=== PATIENT | female | born 1965 | race Caucasian/White ===

== ENCOUNTER 2017-08-27 06:26 | Day surgery (SDC) | payer BC ==
[~2017-08-27] VITALS: Ht 165.1 cm; Wt 58.3 kg
[~2017-08-27 06:26] MED LIST: B-COTAB41 PO; DEXI60CA3 PO; DILA1LIQ PO; DILA2TAB4 PO; DIPH25 PO; GLUC250C5 PO; IMIT100T PO; LIDO5T TOP; MOBI7.5T PO; ONDA4 PO; PRAV40TA PO; PREG25 PO; PREM0.622 PO; TOPI50TA4 PO; WELL150T PO
[2017-08-27] MEDS ORDERED: IOHEXOL 350 MG/ML 100 ML BTL (for Cath Lab) OTHER ONE (06:27)
[2017-08-27] MEDS ORDERED: ASPIRIN 325 MG TAB PO SCH (07:00)
[2017-08-27] MEDS ORDERED: NS 1000P @30 MLS/HR (KVO) IV SCH (07:00)
[2017-08-27 07:04] LABS: AUTOMATED NEUTROPHIL # 4.4 TH/MM3 (1.8-7.7); BASOPHIL # 0.1 TH/MM3 (0-0.2); BASOPHIL % 0.8 % (0.0-2.0); EOSINOPHIL # 0.1 TH/MM3 (0-0.4); EOSINOPHIL % 1.6 % (0.0-4.0); HEMOGLOBIN 14.6 GM/DL (11.6-15.3); LYMPH % 37.3 % (9.0-44.0); LYMPHOCYTE # 3.1 TH/MM3 (1.0-4.8); MEAN CORPUSCULAR HEMOGLOBIN 30.8 PG (27.0-34.0); MEAN CORPUSCULAR HGB CONC 33.1 % (32.0-36.0); MEAN PLATELET VOLUME 9.7 FL (7.0-11.0); MONO % 6.4 % (0.0-8.0); MONOCYTE # 0.5 TH/MM3 (0-0.9); NEUT % 53.9 % (16.0-70.0); PLATELET COUNT 178 TH/MM3 (150-450); RED BLOOD COUNT 4.73 MIL/MM3 (4.00-5.30); RED CELL DISTRIBUTION WIDTH 12.6 % (11.6-17.2); WHITE BLOOD COUNT 8.3 TH/MM3 (4.0-11.0)
[2017-08-27 07:05] VITALS: BP 136/65; PULSE 53; RESP 18; TEMP 97.8; O2SAT 98
[2017-08-27 07:17] LABS: INTERNATIONAL NORMALIZED RATIO 0.9 RATIO; PROTHROMBIN TIME - PATIENT 9.4 SEC (9.8-11.6)
[2017-08-27] MEDS ORDERED: MONT10TA4 PO (07:24)
[2017-08-27] MEDS ORDERED: AMLO2.5T PO (07:24)
[2017-08-27] MEDS ORDERED: PRAV40TA2 PO (07:24)
[2017-08-27] MEDS ORDERED: ESTR.625 PO (07:24)
[2017-08-27] MEDS ORDERED: METO25TA3 PO (07:24)
[2017-08-27] MEDS ORDERED: ASPI81TA23 PO (07:24)
[2017-08-27] MEDS ORDERED: ZOFR4TAB PO (07:24)
[2017-08-27] MEDS ORDERED: CALC1TAB12 PO (07:24)
[2017-08-27] MEDS ORDERED: SUMA100T2 PO (07:24)
[2017-08-27] MEDS ORDERED: NITR0.4S SL (07:24)
[2017-08-27] MEDS ORDERED: VITA500T4 PO (07:24)
[2017-08-27] MEDS ORDERED: BUPR150CR PO (07:24)
[2017-08-27] MEDS ORDERED: OMEP40CA2 (07:24)
[2017-08-27 07:29] LABS: CALCIUM 8.6 MG/DL (8.5-10.1); CREATININE 0.85 MG/DL (0.50-1.00)
[2017-08-27] MEDS ORDERED: HEPARIN-NS/PF INJ 1,000 ML ONE (08:31)
[2017-08-27] MEDS ORDERED: MIDAZOLAM HCL 2 MG/2 ML VIAL ONE ×2 (08:31→08:59)
[2017-08-27] MEDS ORDERED: NITROGLYCERIN 400 MCG/SPRAY 4.9 GM BOTTLE SL ONE (09:20)
[2017-08-27] MEDS ORDERED: SODIUM CHLOR 0.9% 1000 ML INJ 1,000 ML IV SCH (09:48)
--- NOTE | 2017-08-27 09:48 | CATHPROC ---
[facility] HIS Report Study Information Study Number Admission Scheduled Start Study Start [id number] Aug 27 2017 6:26AM 08/27/2017 Aug 27 2017 8:27AM Jeannette Service Cardiac Catheterization Admit Source Facility Department Other [facility] - Card Game Operator Physician and Clinical Staff Initial Uvaldo Prabhakar Fishing Instructor Carlos Loera,NATA Recorder Luz Monsalve,BRUSH PAINTER TECH2 Scrub Michelle Kaur,RT(R) Procedures Performed Procedure Location (Site) Vessel Name Angiogram LV LV Ventricle Coronary Angiograms LCA Left Coronary Coronary Angiograms RCA Right Coronary L Heart Cath Equipment Time Stock Handler Description Size Mfg Part Number Used/Scraped TRANSDUCER, TRUWAVE [id number] 08:29 GOMEZ MANNING * Used W/STOCKCOCK *[id number] 538-476 *[id number] [id number] *[id number] [id number] *[id number] [id number] *[id number] PIGTAIL ANG. 145 INFINITI 534-652S CATHETER *[id number] 08:29 [employer] BLANKET,WARM AIR CCL * Used *[id number] 08:29 [employer] PACK, CCL CUSTOM * Used *[id number] 08:29 [employer] PACER PEN, SKIN DUAL W/ RULER * Used *[id number] 08:29 [employer] MEDICAL SHEATH, FR6.5 PRELUDE 11CM FR 6.5 038ACT Used *[id number] 08:29 [employer] WIRE, 3MMJ .035 180CM 180CM Used *[id number] 08:29 [employer] MANIFOLD, 4 PORT * Used *[id number] 08:29 [employer] OMNIPAQUE, 350 MG, 150ML 150ML [id number] Used 09:08 [employer] OMNIPAQUE, 350 MG, 50ML 50ML [id number] Used History: Current Medications Medication Dosage/Unit Route Frequency Last Date/Time Taken Prilosec Statins (any) ASA Imdur LOPRESSOR History: Allergies Allergy Reaction morphine Swelling codeine hydrocodone oxycodone acetaminophen tramadol Itching History: Risk Factors Family History of Hypertension Dyslipidemia Previous PA Previous Heart Failure Premature CAD No Yes Yes No No Prior Valve Prior PCI Prior CABG Surgery No No No Cerebrovascular Peripheral Artery Chronic Lung On Dialysis Diabetes Disease Disease Disease No No No No No History: Symptoms/Diagnosis Selection Items Chest pain Palpitations History: Stress Tests Stress or Imaging Studies Performed Yes Standard Exercise Stress Test No Stress Echo No Stress Test SPECT Stress Test SPECT Result Stress Test SPECT Ischemia Risk/Extent Yes Positive Intermediate Stress Test CMR No Cardiac CTA Coronary Calcium Score No No History: Other Current Smoker Method Quit Packs a Day Years Used Pack Years No Cigarettes 3 Years Ago 1 20 20 Labs Hgb (g/dl) Hct (%) WBC (l/cumm) Platelets (thousands) 11.60-17.00 35.00-51.00 4.00-11.00 150.00-450.00 14.6 44 8.3 178 Glucose (mg/dl) BUN (mg/dl) Creatinine (mg/dl) BUN:Creatinine (1:x) 74.00-106.00 7.00-18.00 0.50-1.30 10.00-20.00 81 14 0.8 17.5 Na (meq/l) K (meq/l) 136.00-145.00 3.50-5.10 140 3.8 INR (PTT:PT) 0.90-1.10 0.9 CPK-MB (ng/ML) 0.50-3.60 Not Drawn Medication Medication Total Dose (Bolus/Oral) Medication Total Dosage/Unit 1% XYLOCAINE 20 mL NITROGLYCERIN S/L 0.4 mg VERSED 3 mg Medications (Bolus/Oral) Medication Time Given Dosage/Unit Administered By Reason VERSED 08/27/2017 8:58:29 AM 1 mg Ferlitto, Carlos 1 mg VERSED given in lab by Carlos Loera RN in Left Forearm via Peripheral IV. Ordered by Uvaldo Valadez. VERSED 08/27/2017 9:01:28 AM 1 mg Ferlitto, Carlos 1 mg VERSED given in lab by Carlos Loera RN in Left Forearm via Peripheral IV. Ordered by Uvaldo Valadez. VERSED 08/27/2017 9:02:49 AM 1 mg Ferlitto, Carlos 1 mg VERSED given in lab by Carlos Loera RN in Left Forearm via Peripheral IV. Ordered by Uvaldo Valadez. 1% XYLOCAINE 08/27/2017 9:04:32 AM 20 mL Uvaldo Valadez 20 mL 1% XYLOCAINE given in lab by Uvaldo Valadez in Right Groin via Subcutaneous. Ordered by Uvaldo Valadez. NITROGLYCERIN S/L 08/27/2017 9:20:45 AM 0.4 mg Carlos Loera 0.4 mg NITROGLYCERIN S/L given in lab by Carlos Loera, RN via Sublingual. Ordered by Uvaldo Valadez. Medication (Drip) Medication Time Given Dosage/Unit Concentration/Unit Diluent (ml) Solution IV Solutions 08/27/2017 8:27:33 AM 0 mL (IV) 500 NaCl .9 Patient arrived on IV Solutions in Left Antecubital via Peripheral IV. Pump/Drip Flow = 20 ml/hr usin g NaCl .9. Initial Case Assessment Cardiovascular HR Rhythm NIBP Chest Pain 62 reg 130/61 0 Edema Present Skin color Skin None Normal Warm Circulatory - Right Pulses Dorsalis Pedis Femoral d 2 Scale (0,1,2,3,4,d) Circulatory - Left Pulses Dorsalis Pedis Femoral d 2 Scale (0,1,2,3,4,d) Neurological State Oriented to time-place- Alert Moves all extremities person Respiration - General Respiration Rate SpO2 (%) (B/min) 12 100 Final Case Assessment Cardiovascular HR Rhythm NIBP Chest Pain 67 sr 107/47 0 Circulatory - Right Pulses Dorsalis Pedis Femoral d 2 Scale (0,1,2,3,4,d) Circulatory - Left Pulses Dorsalis Pedis Femoral d 2 Scale (0,1,2,3,4,d) Neurological State Oriented to time-place- Alert Moves all extremities person Respiration - General Respiration Rate SpO2 (%) (B/min) 15 97 Chronological Log Time Study Chronological Log 8:25:11 Patient arrived via Bed. 8:25:19 Patient Name, D.O.B, / Armband Verified By R.N. 8:27:19 Consent signed by the physician and the patient and verified by the Card Game Operator staff. 8:27:20 Pre-op and post- op instructions given; patient acknowledges understanding of instructions. 8:27:20 Verbal Stimulation=2 Physical Stimulation=2 Airway=2 Respiration=2 TOTAL=8. (0=absent, 1=katz ited, 2=present) 8:27:22 Patient has been NPO for Less than 6Hrs. 8:27:23 Skin Breakdown-none per patient 8:27:27 A # 20 IV was noted in the Forearm (left). Grade = 0 8:27:33 Patient arrived on IV Solutions in Left Antecubital via Peripheral IV. Pump/Drip Flow = 20 m l/hr using NaCl .9. Vitals capture started with the following parameters, Patient=Adult, Interval=5 min, Initial Pre icouz=289 mmHg, 8:28:18 Deflation Rate=5 mmHg, Cuff placed on right Arm 8:28:58 KMWH=722/61 mmhg, KoD5=254.0 %, Pain=0, Katty=10, Lara=2 8:29:56 History and physical on the chart or being dictated. Assessment: Initial Case, HR=62 BPM, Rhythm=reg, YTQH=876/61 mmhg, Chest Pain=0, Edema=None, Col or=Normal, Skin = Warm Right Pulses: Jose A Ped=d, Femoral=2 8:29:57 Left Pulses: Jose A Ped=d, Femoral=2 Neurological: State=Alert, Ox3, SALAZAR Respiration: Resp=12 B/min, OpQ2=583 % 8:30:41 Reference ECG taken 8:30:53 HR=64 bpm, OSYD=738/58 mmhg, EmO4=178.0 %, Resp=13 B/min, Pain=0, Katty=10, Lara=2 8:32:54 HR=53 bpm, WLQV=397/58 mmhg, LfM3=898.0 %, Resp=10 B/min 8:34:53 HR=56 bpm, XFLG=575/57 mmhg, YtP5=081.0 %, Resp=11 B/min 8:36:41 Bilateral groins prepped with 2% chlorhexidine, and draped after a 3 minute waiting time. 8:36:53 HR=59 bpm, ZECK=377/61 mmhg, WaZ6=153.0 %, Resp=11 B/min 8:38:54 XF=738 bpm, NGFC=140/62 mmhg, MtC8=952.0 %, Resp=9 B/min 8:40:55 HR=61 bpm, UACI=377/52 mmhg, HaB0=155.0 %, Resp=20 B/min 8:42:09 Pressure channel 1 zeroed. 8:42:54 HR=58 bpm, QZGR=697/63 mmhg, GkN5=871.0 %, Resp=16 B/min 8:43:56 paged 8:44:53 HR=54 bpm, EVFO=182/58 mmhg, VrZ6=673.0 %, Resp=12 B/min 8:46:54 HR=55 bpm, RNVR=280/51 mmhg, VvH7=389.0 %, Resp=18 B/min 8:48:54 HR=53 bpm, ETFA=470/51 mmhg, PrO9=700.0 %, Resp=9 B/min 8:50:14 MD arrived. 8:50:55 HR=56 bpm, DSQK=435/53 mmhg, SkO5=043.0 %, Resp=11 B/min 8:52:56 HR=60 bpm, BWYM=856/47 mmhg, QwW3=204.0 %, Resp=7 B/min 8:54:57 HR=65 bpm, KMPE=806/53 mmhg, TmT6=871.0 %, Resp=21 B/min 8:56:58 HR=58 bpm, HKFV=085/49 mmhg, WrO4=980.0 %, Resp=14 B/min 8:58:29 1 mg VERSED given in lab by Carlos Loera RN in Left Forearm via Peripheral IV. Ordered by Uvaldo Valadez. 8:58:52 HR=62 bpm, CJMV=857/58 mmhg, SkR5=800.0 %, Resp=10 B/min Time Out. Correct patient, correct procedure, correct physician, labs, allergies, and equipment verified with rn labor delivery 9:00:04 team present. Fire risk assesment completed (see hard stop sheet for coding). Time Out Concu rred by and individual staff in procedure. 9:00:57 HR=62 bpm, RLNS=343/51 mmhg, CiM0=676.0 %, Resp=19 B/min 9:01:28 1 mg VERSED given in lab by Carlos Loera, NATA in Left Forearm via Peripheral IV. Ordered by Uvaldo Valadez. 9:02:49 1 mg VERSED given in lab by Carlos Loera, NATA in Left Forearm via Peripheral IV. Ordered by Vance. Rory 9:02:56 HR=65 bpm, QZGP=436/55 mmhg, SpO2=99.0 %, Resp=9 B/min 9:04:10 Case Start 9:04:32 20 mL 1% XYLOCAINE given in lab by Uvaldo Valadez in Right Groin via Subcutaneous. Ordered by Uvaldo Valadez. 9:04:59 HR=62 bpm, XFZT=072/45 mmhg, SpO2=97.0 %, Resp=20 B/min 9:06:30 Access site was Right Femoral Artery. 9:06:55 A SHEATH, FR6.5 PRELUDE 11CM FR 6.5 was advanced into the Fem Art (right) using the Percutan eous technique. 9:06:56 HR=63 bpm, SLMP=654/41 mmhg, SpO2=96.0 %, Resp=19 B/min A PIGTAIL ANG. 145 INFINITI CATHETER FR 6 was advanced over a wire. OMNIPAQUE, 350 MG, 50ML 50ML was used 9:07:52 for injections. Recorded Pressure: LV, HR=63, Condition=Condition 1 9:08:56 (Left Ventricle) LV 113/1/7 9:08:59 HR=61 bpm, JNYY=492/43 mmhg, SpO2=99.0 %, Resp=13 B/min 9:10:09 The LV was injected at 10 cc/sec for a total of 40. OMNIPAQUE, 350 MG, 50ML 50ML used. Recorded Pressure: LV, Ao, HR=64, Condition=Condition 1 9:10:30 (Left Ventricle) LV 120/2/10, (Aorta) Ao 122/62/88 9:10:51 Catheter was removed 9:10:57 HR=65 bpm, PLIQ=888/50 mmhg, SpO2=96.0 %, Resp=19 B/min A JL 3.5 INFINITI CATHETER FR 6 was advanced over a wire. OMNIPAQUE, 350 MG, 150ML 150ML was use d for 9:11:22 injections. 9:12:50 The LCA was injected and visualized at various angles. OMNIPAQUE, 350 MG, 150ML 150ML used. 9:12:54 HR=66 bpm, QMYP=399/53 mmhg, SpO2=97.0 %, Resp=16 B/min 9:14:57 HR=67 bpm, IEVG=501/51 mmhg, SpO2=97.0 %, Resp=16 B/min 9:16:56 HR=74 bpm, ZZSC=284/47 mmhg, SpO2=96.0 %, Resp=21 B/min 9:18:01 Catheter was removed A 3DRC INFINITI CATHETER FR 6 was advanced over a wire. OMNIPAQUE, 350 MG, 150ML 150ML was used for 9:18:03 injections. 9:18:57 HR=69 bpm, ZMGJ=050/45 mmhg, SpO2=97.0 %, Resp=14 B/min 9:19:19 The RCA was injected and visualized at various angles. OMNIPAQUE, 350 MG, 150ML 150ML used. 9:20:45 0.4 mg NITROGLYCERIN S/L given in lab by Carlos Loera RN via Sublingual. Ordered by Uvaldo Fritz. 9:20:56 HR=76 bpm, UVBK=741/57 mmhg, SpO2=97.0 %, Resp=16 B/min A 3DRC INFINITI CATHETER FR 4 was advanced over a wire. OMNIPAQUE, 350 MG, 150ML 150ML was used for 9:22:04 injections. 9:22:58 HR=68 bpm, QYET=443/52 mmhg, SpO2=97.0 %, Resp=13 B/min 9:23:08 The RCA was injected and visualized at various angles. OMNIPAQUE, 350 MG, 150ML 150ML used. 9:24:22 Catheter was removed 9:24:30 Case End (Physician broke scrub) 9:24:59 HR=69 bpm, ABIV=567/48 mmhg, SpO2=96.0 %, Resp=10 B/min 9:26:58 HR=73 bpm, IIKA=333/47 mmhg, SpO2=97.0 %, Resp=15 B/min 9:29:05 Vitals capture stopped. 9:29:23 Sheath(s) left in place, will be removed in Holding Area 9:29:36 Sterile dressing applied to site Assessment: Final Case, HR=67 BPM, Rhythm=sr, WBHE=512/47 mmhg, Chest Pain=0 Right Pulses: Jose A Ped=d, Femoral=2 9:29:45 Left Pulses: Jose A Ped=d, Femoral=2 Neurological: State=Alert, Ox3, SALAZAR Respiration: Resp=15 B/min, SpO2=97 % 9:31:22 Patient moved to stretcher 9:31:58 No case complications noted. 9:32:00 Cine recording checked. 9:32:02 Bedside Report will be given. 9:32:14 A Left Heart Cath was performed. 9:32:31 Patient transported to DOCU. End Study - Contrast Media Used In Study Contrast Total Opened (mL) Total Used (mL) Total Wasted (mL) Omnipaque 75 75 0 End Study - Maximum Contrast Load Max Contrast Load (mL) 364.5 End Study - Radiation Exposure Fluoro Time (minutes) 2.8 End Study - Patient Disposition Complications Transferred To Interventional Outcome No Outpatient Bed No attempt made
[2017-08-27] MEDS ORDERED: MISC INFORMATION XX ONE (10:00)
[2017-08-27] MEDS ORDERED: BACITRACIN OINT 0.9 GM PKT TOP ONE (10:00)
[2017-08-27] MEDS ORDERED: METOCLOPRAMIDE HCL 10 MG/2 ML VIAL IV PUSH PRN (10:00)
--- NOTE | 2017-08-27 10:04 | MA ---
cc: Uvaldo Valadez MD DATE: 08/27/2017 BRIEF HISTORY: Gabbie Branch is a 52-year-old woman with a previous history of smoking, hyperlipidemia, and a family history of coronary artery disease who has been having severe, intermittent episodes of angina. She underwent a Lexiscan nuclear stress test. She dropped her ST segments consistent with ischemia, although the SPECT imaging was normal. She has been initiated on antianginal therapy. She has had recurrent episodes. Cardiac catheterization is being performed to define her coronary anatomy. PROCEDURES PERFORMED: Left heart catheterization, left ventriculography, coronary angiography. DESCRIPTION OF PROCEDURE: The patient was brought to the cardiac catheterization lab in a fasting state. She was nervous. She received a total of 3 mg of Versed IV and even with that stayed awake during the procedure. Using 1 percent lidocaine for local anesthesia in a single stick, the right femoral artery was accessed. LV pressure was measured with the angled pigtail catheter, followed by left ventriculography and then a pullback. Left coronary angiography was completed using a left 3.5 Rajni. Introduced a 6-Andorran 3DRC catheter and had damping due to spasm. Nitroglycerin was given and I switched to a 4-Andorran catheter and finished angiography of the right coronary artery. The sheath is to be pulled manually. There were no complications. ESTIMATED BLOOD LOSS: Less than 5 mL. FINDINGS: HEMODYNAMICS: Left ventricular pressure is 120/2 with an end diastolic pressure of 10. Aortic pressure is 122/62 with a mean of 88. There was no gradient during pullback from left ventricle to the aorta. LEFT VENTRICULOGRAPHY: Prior to contrast administration, there was no coronary calcification seen. With contrast administration, LV ejection fraction is about 65 percent with no mitral regurgitation. Her aorta is somewhat small as the reason why a left 3.5 Rajni was used. CORONARY ANGIOGRAPHY: Left main: The left main coronary artery is about 1 cm long and not much bigger than 3 mm and appears normal. It bifurcates into a tiny ramus, the LAD and the circumflex vessel. LAD: The LAD is a small caliber vessel. It does have an ostial stenosis, about 25 percent that was imaged in multiple views and not felt to be hemodynamically significant. The remainder of the LAD is small caliber and appears normal. The diagonal branch is sub-millimeter in size. Circumflex artery: The circumflex artery gives off 1 bifurcating marginal branch somewhat distally and a significant atrial branch. Circumflex system appears normal. Right coronary artery: The right coronary artery is dominant. It is tortuous proximally. Slight ostial narrowing was present due to spasm relieved with nitro. The posterior descending artery branch is about a millimeter in size and there is probably a 20 percent stenosis in the mid portion of the PDA branch. CONCLUSIONS: 1. Normal hemodynamics. 2. Normal left ventricular function. 3. Mild coronary artery disease manifesting as a mild ostial LAD stenosis and some trivial narrowing in the midportion of the posterior descending artery branch. Overall, my impression is that she may be having coronary spasm. PLAN: I am going to discontinue her beta leslee and replace it with diltiazem at a low dose for now 120 mg daily. Continue her statin, aspirin and Imdur. She has scheduled followup in the office. Uvaldo Valadez MD VEAraseli/BILLY , 09:40 AM , 10:03 AM
--- NOTE | 2017-08-27 13:43 | EKG ---
Date Performed: 08/27/2017 Time Performed: 07:30:16 PTAGE: 52 years EKG: Sinus bradycardia. Normal ECG except for rate PREVIOUS TRACING : 12/22/2013 12.07 DOCTOR: Brigido Fam Interpretating Date/Time 08/27/2017 13:41:59
== END 2017-08-27 16:12 | disposition home or self-care (01) ==
LOC: HDOC 06:26 → HDIC 06:27 → HDOC 16:12
PROVIDERS: ATTEND Internal Medicine Cardiovascular Disease
DX: I25.111 Atherosclerotic heart disease of native coronary artery with angina pectoris with documented spasm (principal); E78.5 Hyperlipidemia, unspecified; K85.90 Acute pancreatitis without necrosis or infection, unspecified; M85.80 Other specified disorders of bone density and structure, unspecified site; M54.9 Dorsalgia, unspecified; K58.9 Irritable bowel syndrome, unspecified; G43.009 Migraine without aura, not intractable, without status migrainosus; K29.70 Gastritis, unspecified, without bleeding; K22.2 Esophageal obstruction; F32.9 Major depressive disorder, single episode, unspecified; Z82.49 Family history of ischemic heart disease and other diseases of the circulatory system; Z87.891 Personal history of nicotine dependence
CPT/HCPCS: 80048; 85025; 85610; 85730; 93005; 93458; 99152; 99153; C1769; C1893; J1644; J2250; J7030; Q9967